=== PATIENT | female | born 1980 | race Caucasian/White ===

== ENCOUNTER 2020-07-31 11:07 | Emergency (ER) | payer OTHER ==
[~2020-07-31 11:07] MED LIST: ELAVIL 25 MG TA25 MG PO; ENSURE HIGH PR237 ML PO; K-DUR TAB 20 M20 MEQ PO; METOPROLOL SUCC25 MG PO; NEURONTIN 100100 MG PO; NEURONTIN 300300 MG PO; NICOTINE PATCH1 EAC1 TD; NORCO 5-325 TA1 EACH PO; PREDNISONE20 MG PO; RITALIN5 MG PO; THERAGRAN M TAB1 EA PO; ZOFRAN 4 MG TAB4 MG SL
[2020-07-31] MEDS ORDERED: VIBRAMYCIN 100100 MG PO (11:34)
== END 2020-07-31 11:54 | disposition home or self-care (01) ==
LOC: ER1 11:07
DX: S91.312A Laceration without foreign body, left foot, initial encounter (principal); Z23 Encounter for immunization; F17.210 Nicotine dependence, cigarettes, uncomplicated; W26.8XXA Contact with other sharp object(s), not elsewhere classified, initial encounter
CPT/HCPCS: 12002; 90471; 90714; 99283

== ENCOUNTER 2021-07-17 12:44 | Emergency (ER) | payer OTHER ==
[~2021-07-17 12:44] MED LIST changes: +VIBRAMYCIN 100100 MG PO
[2021-07-17] MEDS ORDERED: PERCOCET 5/325 T1 EA PO (16:58)
== END 2021-07-17 17:17 | disposition home or self-care (01) ==
LOC: ER1 12:44
DX: S76.012A Strain of muscle, fascia and tendon of left hip, initial encounter (principal); W19.XXXA Unspecified fall, initial encounter
CPT/HCPCS: 73502; 73630; 99283